=== PATIENT | female | born 1955 | race Caucasian/White ===

== ENCOUNTER 2024-08-14 09:06 | Observation (INO) | payer MEDICARE, SELFPAY ==
[2024-08-14] VITALS (8 sets, daily range): BP systolic 116–136; BP diastolic 67–79; PULSE 64–80; RESP 16–20; TEMP 36.6–37.1; O2SAT 98–99; BMI 30.3; BMI 30.4
--- NOTE | 2024-08-14 09:42 | US_ITS ---
EXAM: US Abdomen Limited, Right Upper Quadrant CLINICAL INDICATION: PAIN TECHNIQUE: Real-time ultrasound of the right upper quadrant with image documentation. COMPARISON: No relevant prior studies available. FINDINGS: LIVER: Liver measures 15.6 cm. Mild prominent intrahepatic ductal dilatation. GALLBLADDER: Distended gallbladder measuring up to 12.3 cm in length. Gallbladder sludge. Negative Chairez's sign was reported by the telecom assistant. No gallstones. COMMON BILE DUCT: Common bile duct is prominent measuring 0.72 cm in diameter. No common bile duct stone is seen. PANCREAS: Unremarkable as visualized. RIGHT KIDNEY: Unremarkable. No stones. No hydronephrosis. The right kidney measures 9.2 x 5.6 x 6.0 cm. US/Abdomen Limited IMPRESSION: Common bile duct is prominent measuring 0.72 cm in diameter. No common bile du ct stone is seen. Reading Location: [id number]
--- NOTE | 2024-08-14 09:44 | EDS_ITS ---
HPI HPI - GI History of Present Illness Chief Complaint: Abd Pain Narrative Narrative: 69-year-old female who denies significant past medical history presents with right upper quadrant abdominal pain that she has had for the last week. Of note, she states that she was seen by her primary care provider in [place] at the [facility] yesterday. She had laboratory work drawn as well as an ultrasound of the right upper quadrant. She states that her blood work may have shown slight inflammation, but the ultrasound initially looked okay, but she received a call from another provider in the practice, who told her that her gallbladder was infected and that she needed to come to the emergency department. She slightly nauseated but denies any vomiting currently. No fevers or chills, no jaundice. She does have pain in the right upper quadrant when she breathes or moves. [facility] Medical History Anxiety and depression Diverticulitis Home Medications ?Medication ?Instructions ?Recorded ?Last Taken ?Type Lactobacillus acidophilus 10 10,000 mmu cells PO DAILY 08/14/24 08/13/24 History billion cell capsule (Probacap) antiarthritic combination no.2 900 900 mg PO DAILY 08/14/24 History mg tablet (glucosamine-chondroitin) fluoxetine 20 mg capsule 20 mg PO DAILY 08/14/2407/29 History gabapentin 300 mg capsule 300 mg PO TID PRN NERVE PAIN 08/14/24 08/14/24 History hyoscyamine sulfate 0.125 mg tablet 0.125 mg PO Q8H MT N STOMACH CRAMPS 08/14/24 Unknown History magnesium oxide 420 mg tablet 420 mg PO DAILY 08/14/24 08/13/24 History omeprazole 20 mg capsule,delayed 20 mg PO DAILY 08/14/24 History release psyllium husk 0.4 gram capsule 0.4 g PO DAILY 08/14/24 08/13/24 History (Daily Fiber) turmeric 400 mg capsule 400 mg PO DAILY 08/14/24 History Allergy/AdvReac Type Severity Reaction Status Date / Time No Known Allergies Allergy Verified 08/14/24 09:07 Social History Smoking Status: Never smoker ROS ROS ED ROS Narrative Constitutional: No fever, no chills. Cardiovascular: No chest pain. No palpitations. No pedal edema. Respiratory: No cough, no shortness of breath. Abdominal: Right upper quadrant abdominal pain. Positive nausea. No vomiting. Positive loose stool. Genitourinary: No dysuria. No hematuria. Skin: No rash. No change in color. EXAM Physical Exam Narrative Exam Narrative: Afebrile. Vital signs noted. Nontoxic-appearing. Cardiovascular examination shows a regular rate and rhythm. Lungs are clear to auscultation bilaterally. Abdomen is soft, positive tenderness to palpation right upper quadrant with positive Chairez sign, also with positive bowel sounds. Skin without jaundice. Neurological examination nonfocal, nonlateralizing. Awake, alert, interactive and appropriate. Moves all extremities. Const Vital Signs: 08/14/24 09:07 08/14/24 10:09 08/14/24 11:00 Temperature 98 F 98.8 F 98.7 F Temperature Source Oral Oral Oral Pulse Rate 76 80 78 Respiratory Rate 16 16 18 Blood Pressure 136/79 H 126/79 H 129/67 H Blood Pressure Mean 98 94 87 Pulse Ox 98 98 98 Oxygen Delivery Method Room Air Room Air Room Air 08/14/24 11:10 Temperature 98.7 F Temperature Source Pulse Rate 78 Respiratory Rate 18 Blood Pressure 129/67 H Blood Pressure Mean 87 Pulse Ox 98 Oxygen Delivery Method MDM MDM MDM Narrative Medical decision making narrative: The differential diagnosis includes but not limited to cholelithiasis versus cholecystitis versus choledocholithiasis. Patient states that she was told yesterday evening that she had gallstones. I reviewed with her on her telephone her outpatient results and she did not have an elevated white count, her lipase was normal, but the ultrasound did show gallstones with borderline enlarged common bile duct and positive pericholecystic fluid. With the concern for acute cholecystitis, I will repeat her laboratory work here to see if she has a leukocytosis and I did order an additional ultrasound and she was started on Zosyn. I discussed the patient with the on-call surgeon Dr. Stallings. I reviewed her laboratory work and she has normal white count of 8.1 with hemoglobin 11.8, hematocrit 35.1, platelet count normal at 304. CMP is remarkable for glucose of 102, LFTs are grossly unremarkable, lipase normal at 21. Her ultrasound is still pending. I did start her on Zosyn based on her pericholecystic fluid from before. I discussed patient with Dr. Bernal who requested an EKG preoperatively which I will obtain and interpret. Upon repeat examination at approximately 11:10 AM, patient is still having right upper quadrant tenderness and pain. However, she does feel improved. Given her acute cholecystitis, I feel she can be admitted to the surgical service as requested by Dr. Stallings. EKG interpreted by myself independently demonstrates normal sinus rhythm at 62 bpm without ectopy or acute ST changes. No STEMI. QTc normal at 428 ms. Disposition is admit in stable condition. History & Record Review Discussion w/independent historian: Patient Additional record(s) reviewed:: Prior outpatient record (Via patient's personal MyChart on her telephone) Lab Data Attestation: I reviewed the patient's lab results. Labs: Laboratory Results - last 24 hr 08/14/24 09:45 WBC 8.1 RBC 3.68 L Hgb 11.8 L Hct 35.1 L MCV 95.4 MCH 32.1 H MCHC 33.6 RDW Std Deviation 45.8 H RDW Coeff of Trav 12.9 Plt Count 304 MPV 10.3 Immature Gran % (Auto) 0.400 Neut % (Auto) 70.3 H Lymph % (Auto) 11.7 L Faulk % (Auto) 14.4 H Eos % (Auto) 2.5 Baso % (Auto) 0.7 Absolute Neuts (auto) 5.7 Absolute Lymphs (auto) 0.95 Nucleated RBC % 0 Sodium 139 Potassium 4.3 Chloride 105 Carbon Dioxide 22.4 Anion Gap 12 BUN 19 Creatinine 0.88 Estim Creat Clear Calc 64.10 Est GFR (MDRD) Non-Af 71 BUN/Creatinine Ratio 21.0 H Glucose 102 H Calcium 9.5 Total Bilirubin 0.38 AST 20 ALT 14 Alkaline Phosphatase 91 Total Protein 7.3 Albumin 4.0 Globulin 3.3 Albumin/Globulin Ratio 1.2 Lipase 21 Radiography Diagnostic Testing: Clinical Impression(s) from Imaging Studies Abdomen Ultrasound 08/14/24 09:42 IMPRESSION: Common bile duct is prominent measuring 0.72 cm in diameter. No common bile duct stone is seen. Reading Location: [id number] Discharge Plan Dx/Rx/DC Orders Clinical Impression: Right upper quadrant abdominal pain, Acute cholecystitis, Common bile duct dilatation Disposition Disposition: Acute Care Hospital [facility]
[2024-08-14 09:59] LABS: Absolute Lymphocyte Count 0.95 X10^3/uL (0.83-4.51); Absolute Neutrophil Count 5.7 X10^3/uL (2.0-7.7); Basophil# 0.06 X10^3/uL; Basophil% 0.7 % (0-1); Eosinophils% 2.5 % (0-5); Hematocrit 35.1 % (37-47); Hemoglobin 11.8 g/dL (12.0-15.0); Lymphocyte # 0.95 X10^3/ul (0.83-4.51); Lymphocyte % 11.7 % (19-41); Mean Corp Hgb Conc 33.6 g/dL (32-36); Mean Corpuscular Hgb 32.1 pg (27.0-32.0); Mean Corpuscular Volume 95.4 fL (81-99); Mean Platelet Vol. 10.3 fl (6.2-12.0); Monocyte# 1.17 X10^3/uL; Monocyte% 14.4 % (0-10); NRBC Flagged by Analyzer 0 % (0-5); Neutrophil # 5.73 X10^3/uL (2.7-7.7); Neutrophil % 70.3 % (47-70); Platelet Count 304 K/mm3 (150-450); RBC Distribution Width CV 12.9 % (11.6-14.6); RBC Distribution Width SD 45.8 fl (35.1-43.9); Red Blood Count 3.68 M/mm3 (4.2-5.4); White Blood Count 8.1 K/mm3 (4.4-11.0)
[2024-08-14] MEDS: 0.9% Normal Saline (1000mL) 1,000 ML 125 ML IV ×2 (10:07→14:43)
[2024-08-14] MEDS: Piperacil/Tazobactam 3.375 GM in 0.9% Normal Saline (50mL MB+) 50 ML IV ×3 (10:07→22:33)
[2024-08-14] MEDS: Morphine 4 MG/ML Syringe IV (10:07)
[2024-08-14] MEDS: Ondansetron 4 MG/2 ML Vial IV (10:08)
[2024-08-14 10:22] LABS: ALB/GLOB Ratio 1.2 RATIO (0.9-2.4); AST(SGOT) 20 U/L (<=31); Alanine Aminotransfer ALT/SGPT 14 U/L (<=34); Alkaline Phosphatase 91 U/L (35-104); Anion Gap 12 (5-15); BUN 19 mg/dL (4-19); Calcium,Total 9.5 mg/dL (7.6-11.0); Carbon Dioxide 22.4 mmol/L (21.0-32.0); Chloride 105 mmol/L (98-108); Creatinine, Serum 0.88 mg/dL (0.70-1.20); EST Glomerular Filtration Rate 71 (>60); Globulin 3.3 g/dL (2.2-4.2); Glucose 102 mg/dL (70-99); Lipase 21 U/L (13-75); Potassium 4.3 mmol/L (3.3-5.1); Protein, Total 7.3 g/dL (5.9-8.4); Sodium Level 139 mmol/L (133-145); Total Bilirubin 0.38 mg/dL (0.00-1.30)
--- NOTE | 2024-08-14 11:06 | EKG12_ITS ---
Test Reason : ABD PAIN Blood Pressure : */* mmHG Vent. Rate : 62 BPM Atrial Rate : 62 BPM P-R Int : 122 ms QRS Dur : 74 ms QT Int : 422 ms P-R-T Axes : 63 11 20 degrees QTcB Int : 428 ms Normal sinus rhythm Normal ECG Confirmed by RAMIRO CHRISTY, JAMEL ([id number]), graphics editor VICTORIA GUTIERREZ ([id number]) on 08/16/2024 9:21:40 AM Referred By: Confirmed By: JAMEL RUBIO MD
--- NOTE | 2024-08-14 11:07 | PCM.HP.STD ---
HPI - General General Date of Admission: 08/14/24 Date of Service: 08/14/24 HPI Narrative LUZ BUENROSTRO, is a 69 F who presents to the ER due to abnormal ultrasound of the gallbladder done by her PCP on at [place]. Patient is currently in the process of moving to [place] from [place]. Patient was called and told to go to the ER this morning as she reported states she had pericholecystic fluid. Patient has had tenderness in the right upper quadrant over the last week. Patient states that did not get worse with eating but did not have chronic constant pain. Patient was able to eat pizza yesterday. Patient's repeat ultrasound in the ER report is pending does appear to have cholelithiasis as well as small amount of pericholecystic fluid?official report does not note the pericholecystic fluid but it is seen on ultrasound per my read. Patient white blood count 8.1 with a slight left shift. Zosyn 3.375 g IV every 8 hours started in the ER. [facility] Medical History Anxiety and depression Diverticulitis Home Medications ?Medication ?Instructions ?Recorded ?Last Taken ?Type Lactobacillus acidophilus 10 10,000 mmu cells PO DAILY 08/14/24 08/13/24 History billion cell capsule (Probacap) antiarthritic combination no.2 900 900 mg PO DAILY 08/14/24 08/14/24 History mg tablet (glucosamine-chondroitin) fluoxetine 20 mg capsule 20 mg PO DAILY 08/14/24 08/14/24 History gabapentin 300 mg capsule 300 mg PO TID PRN NERVE PAIN 08/14/24 08/14/24 History hyoscyamine sulfate 0.125 mg tablet 0.125 mg PO Q8H PRN STOMACH CRAMPS 08/14/24 Unknown History magnesium oxide 420 mg tablet 420 mg PO DAILY 08/14/24 08/13/24 History omeprazole 20 mg capsule,delayed 20 mg PO DAILY 08/14/24 08/14/24 History release psyllium husk 0.4 gram capsule 0.4 g PO DAILY 08/14/24 08/13/24 History (Daily Fiber) turmeric 400 mg capsule 400 mg PO DAILY 08/14/24 08/14/24 History Allergy/AdvReac Type Severity Reaction Status Date / Time No Known Allergies Allergy Verified 08/14/24 12:08 Social History Smoking Status: Never smoker Vital Signs Vital Signs Vital Signs: 08/14/24 09:07 08/14/24 10:09 08/14/24 11:00 Temperature 98 F 98.8 F 98.7 F Temperature Source Oral Oral Oral Pulse Rate 76 80 78 Respiratory Rate 16 16 18 Blood Pressure 136/79 H 126/79 H 129/67 H Blood Pressure Mean 98 94 87 Pulse Ox 98 98 98 Oxygen Delivery Method Room Air Room Air Room Air Weight Weight: 182 lb 6.4 oz Body Mass Index (BMI) 30.3 Physical Exam Const alert, oriented x3 and no apparent distress HEENT normocephalic and head/scalp atraumatic Resp normal respiratory effort Cardio regular rate GI soft to palpation; Negative for non-distended Palpation: tender epigastric and RUQ; Negative for guarding Extremity no clubbing, cyanosis or edema Neuro CN's II-XII intact bilaterally Psych mental status grossly normal Results Lab / Micro Data 08/14/24 09:45 08/14/24 09:45 Labs: Laboratory Results - last 24 hr 08/14/24 09:45: WBC 8.1, RBC 3.68 L, Hgb 11.8 L, Hct 35.1 L, MCV 95.4, MCH 32.1 H, MCHC 33.6, RDW Std Deviation 45.8 H, RDW Coeff of Trav 12.9, Plt Count 304, MPV 10.3, Immature Gran % (Auto) 0.400, Neut % (Auto) 70.3 H, Lymph % (Auto) 11.7 L, Jerome % (Auto) 14.4 H, Eos % (Auto) 2.5, Baso % (Auto) 0.7, Absolute Neuts (auto) 5.7, Absolute Lymphs (auto) 0.95, Nucleated RBC % 0, Sodium 139, Potassium 4.3, Chloride 105, Carbon Dioxide 22.4, Anion Gap 12, BUN 19, Creatinine 0.88, Estim Creat Clear Calc 64.10, Est GFR (MDRD) Non-Af 71, BUN/Creatinine Ratio 21.0 H, Glucose 102 H, Calcium 9.5, Total Bilirubin 0.38, AST 20, ALT 14, Alkaline Phosphatase 91, Total Protein 7.3, Albumin 4.0, Globulin 3.3, Albumin/Globulin Ratio 1.2, Lipase 21 Assessment & Plan Assessment/Plan (1) Acute cholecystitis: PLAN: Plan Plan to admit clears until midnight then n.p.o. and IV fluids Zosyn IV Pain control Reviewed the anatomy with the patient and discussed the procedure: laparoscopic cholecystectomy with possible cholangiograms, possible open. Review risks including but not limited to bleeding, infection, hernia, bile leak, retained gallstones requiring another procedure ERCP- Endoscopic Retrograde Cholangiopancreatography, injury to another organ (bile ducts, common bile duct, small bowel, etc.) and conversion to an open procedure. All questions were answered. Saundra Stallings M.D. Pager: [phone] [facility] [address] [place] [address], [address] [place] [address] Office: [phone]
[2024-08-14] MEDS: oxyCODONE 5 MG Tablet PO (20:15)
[2024-08-15] VITALS (16 sets, daily range): BP systolic 108–180; BP diastolic 68–85; PULSE 77–94; RESP 14–18; TEMP 36.4–37.3; O2SAT 91–99; BMI 30.5; BMI 30.6
[2024-08-15] MEDS: Piperacil/Tazobactam 3.375 GM in 0.9% Normal Saline (50mL MB+) 50 ML IV ×3 (05:17→22:29)
[2024-08-15] MEDS: Morphine 4 MG/ML Syringe IV (05:22)
[2024-08-15] MEDS: 0.9% Normal Saline (1000mL) 1,000 ML 125 ML IV (05:23)
[2024-08-15 05:26] LABS: Absolute Lymphocyte Count 0.92 X10^3/uL (0.83-4.51); Absolute Neutrophil Count 3.3 X10^3/uL (2.0-7.7); Basophil# 0.06 X10^3/uL; Basophil% 1.1 % (0-1); Eosinophil# 0.28 X10^3/uL; Eosinophils% 5.3 % (0-5); Hematocrit 32.3 % (37-47); Hemoglobin 10.7 g/dL (12.0-15.0); Lymphocyte # 0.92 X10^3/ul (0.83-4.51); Lymphocyte % 17.3 % (19-41); Mean Corp Hgb Conc 33.1 g/dL (32-36); Mean Corpuscular Hgb 32.6 pg (27.0-32.0); Mean Corpuscular Volume 98.5 fL (81-99); Mean Platelet Vol. 9.7 fl (6.2-12.0); NRBC Flagged by Analyzer 0 % (0-5); Neutrophil # 3.25 X10^3/uL (2.7-7.7); Neutrophil % 61.1 % (47-70); Platelet Count 255 K/mm3 (150-450); RBC Distribution Width CV 12.8 % (11.6-14.6); RBC Distribution Width SD 46.5 fl (35.1-43.9); Red Blood Count 3.28 M/mm3 (4.2-5.4); White Blood Count 5.3 K/mm3 (4.4-11.0)
[2024-08-15] MEDS: Ondansetron 4 MG/2 ML Vial IV (05:39)
[2024-08-15 07:07] LABS: AST(SGOT) 23 U/L (<=31); Alanine Aminotransfer ALT/SGPT 12 U/L (<=34); Albumin, Serum 3.4 g/dL (3.4-4.8); Alkaline Phosphatase 89 U/L (35-104); Anion Gap 8 (5-15); BUN 10 mg/dL (4-19); BUN/Creat Ratio 11.1 RATIO (10-20); Bilirubin, Direct 0.26 mg/dL (0.00-0.30); Calcium,Total 8.9 mg/dL (7.6-11.0); Carbon Dioxide 25.3 mmol/L (21.0-32.0); Chloride 108 mmol/L (98-108); Creatinine, Serum 0.87 mg/dL (0.70-1.20); EST Glomerular Filtration Rate 72 (>60); Estimated Creatinine Clearance 65.05 ml/min (50-250); Globulin 2.9 g/dL (2.2-4.2); Glucose 100 mg/dL (70-99); Potassium 4.7 mmol/L (3.3-5.1); Protein, Total 6.3 g/dL (5.9-8.4); Sodium Level 141 mmol/L (133-145); Total Bilirubin 0.52 mg/dL (0.00-1.30)
--- NOTE | 2024-08-15 07:54 | PRE.ANES_ITS ---
ASA Classification* ASA Classification ASA Classification: 2 and E Assessment & Plan Anesthesia* Anesthesia Assessment Anesthesia Assessment: Discussed sedation and/or anesthesia options, risks, benefits, and alternatives with patient/parents/legal guardian/POA. Questions invited. The patient/parents/legal guardian/POA seems to understand and agrees to proceed with anesthesia plan. Reviewed the physical assessment, medical history, allergy history and patient home medications list prior to surgery/procedure/anesthetic and documented any changes. Performed airway and anesthesia risk assessments. Anesthesia Type Anesthesia Type: General Anesthesia Focused Assessment* Temperature: 99.1 F Pulse Rate: 78 Blood Pressure: 123/68 Respiratory Rate: 18 Pulse Ox: 97 Airway Assessment Mouth opens: >3 cm Mallampati Score: II Focused Labs Anesthesia Preop lab: CBC WBC 5.3 K/mm3 (4.4-11.0) 08/15/24 05:08 08/15/24 RBC 3.28 M/mm3 (4.2-5.4) L 08/15/24 05:08 08/15/24 Hgb 10.7 g/dL (12.0-15.0) L 08/15/24 05:08 5 Hct 32.3 % (37-47) L 08/15/24 05:08 08/15/24 Plt Count 255 K/mm3 (150-450) 08/15/24 05:08 08/15/24 CHEMISTRY Potassium 4.7 mmol/L (3.3-5.1) 08/15/24 05:08 08/15/24 Sodium 141 mmol/L (133-145) 08/15/24 05:08 08/15/24 BUN 10 mg/dL (4-19) 08/15/24 05:08 08/15/24 Creatinine 0.87 mg/dL (0.70-1.20) 08/15/24 05:08 08/15/24 Glucose 100 mg/dL (70-99) H 08/15/24 05:08 08/15/24 COAG Pre-Assessment Diagnosis/Proposed Procedure Planned Operative Procedure(s): lap issac Anesthesia History Anesthesia History - performance improvement consultant: Anesthesia History - performance improvement consultant Hx Hospitalization Any Problems With Anesthesia No 08/15/24 05:25 Cholinesterase deficiency No 08/15/24 05:25 You/Your Family Experience No 08/15/24 05:25 fever (hyperthermia) with Relationship Recent Exposure to Contagious No 08/15/24 05:25 Disease Does patient have nerve No 08/15/24 05:25 stimulator Patient instructed to have device shut off --Does patient have Pacemaker No 08/15/24 05:27 or ICD? When Was Last Pacemaker Check QUESTION #4 FULL TEXT: You/Your Family Experience fever (hyperthermia) with Anesthesia Last Oral Intake Last Oral intake: Last Oral Intake NPO since 00:00 08/15/24 05:27 Meds taken in AM with sips of water? Meds patient instructed to take am of surgery PONV PONV - performance improvement consultant: PONV - performance improvement consultant Female HX of Motion Sickness HX of N/V After Surgery Non-Smoker Duration of Surgery greater than 60 minutes Number of Risk Factors PONV Score Height & Weight Height & Weight: Anesthesia: Height & Weight Height 5 ft 5 in 08/15/24 05:27 Weight: 83.3 kg 08/15/24 05:27 Body Mass Index (BMI) 30.5 08/15/24 05:27 Respiratory Assessment Respiratory Assessment - performance improvement consultant: Respiratory Tract Infection Hx - performance improvement consultant Hx Respiratory Tract Infection No 08/15/24 05:25 STOP Sleep Apnea STOP Sleep Apnea - performance improvement consultant: STOP Sleep Apnea - performance improvement consultant Hx Hypertension No 08/14/24 11:53 Hx Sleep Apnea No 08/14/24 11:53 CPAP BIPAP Do you snore loudly (louder No 08/14/24 11:53 than talking or can be heard Do you often feel tired/ No 08/14/24 11:53 fatigued/ sleepy during daytime? Has anyone observed you stop No 08/14/24 11:53 breathing during sleep? STOP Results Negative 08/14/24 11:53 QUESTION #5 FULL TEXT : Do you snore loudly (louder than talking or can be heard through closed doors)? Tobacco Use History Tobacco Use History - performance improvement consultant: Tobacco Use History - performance improvement consultant Tobacco Use Smoking Status Never smoker 08/14/24 11:53 Hx Tobacco Use No 08/14/24 11:53 Years Smoking Packs Smoked per Day Smoking Cessation Date was within the last 15 years Hx Smoking Cessation Date Hx Smoking Cessation Counseling Hematologic Medial History Hematologic Hx - performance improvement consultant: Hematologic Medical Hx - marketing ambassador Hx of Blood Transfusion No 08/14/24 11:53 Hx of Transfusion in last 3 No 08/14/24 11:53 Months Date of Last Transfusion (if within last 3 months) Ever experience any problems No 08/14/24 11:53 with transfusion(s)? Specify any problems Hx of Preganancy in last 3 No 08/14/24 11:53 Months Nurse Filling Out Transfusion TCLEVIDEN 08/14/24 11:53 & Questions: Date: 08/14/24 08/14/24 11:53 Time: 12:17 08/14/24 11:53 Patient unable to answer at this time (ie. confused, unrespo /Reproduction History /Reproductive History - performance improvement consultant: /Reproductive Hx- performance improvement consultant Hx Now No 08/15/24 05:25 Gestational Age (in weeks): EDC: Hx Hx Para Hx Section SAB Active Medications Active Medications: Current Medications Generic Name Dose Route Start Last Admin Trade Name Freq PRN Reason Stop Dose Admin Acetaminophen 650 mg 08/14/24 11:52 Acetaminophen 325 Mg Tablet PO Q6H PRN PRN Pain Score 1-10 Fluoxetine HCl 20 mg 08/15/24 10:00 Fluoxetine 20 Mg Capsule PO DAILY FANTA Piperacillin Sod/Tazobactam 50 mls @ 12.5 mls/hr 08/14/24 14:00 08/15/24 05:17 Sod 3.375 gm/ Sodium Chloride IV 12.5 mls/hr Q8 FANTA Administration Sodium Chloride 1,000 mls @ 125 mls/hr 08/14/24 11:52 08/15/24 05:23 IV 125 mls/hr .Q8H FANTA Administration Morphine Sulfate 2 - 4 mg 08/14/24 11:52 Morphine 2 Mg/Ml Syringe IV Q2H PRN PRN Pain Score 1-10 Morphine Sulfate 2 - 4 mg 08/14/24 11:58 08/15/24 05:22 Morphine 4 Mg/Ml Syringe IV 4 mg Q2H PRN PRN Administration Pain Score 1-10 Ondansetron HCl 4 mg 08/14/24 11:52 08/15/24 05:39 Ondansetron 4 Mg/2 Ml Vial IV 4 mg Q8H PRN PRN Administration NAUSEA Oxycodone HCl 5 - 10 mg 08/14/24 11:52 08/14/24 20:15 Oxycodone 5 Mg Tablet PO 10 mg Q4H PRN PRN Administration Pain Score 1-10 Pantoprazole Sodium 20 mg 08/15/24 10:00 Pantoprazole Sodium 20 Mg Tablet PO DAILY FANTA PFSH Medical History Anxiety and depression Diverticulitis Home Medications ?Medication ?Instructions ?Recorded ?Last Taken ?Type Lactobacillus acidophilus 10 10,000 mmu cells PO DAILY 08/14/24 08/13/24 History billion cell capsule (Probacap) antiarthritic combination no.2 900 900 mg PO DAILY 08/14/24 History mg tablet (glucosamine-chondroitin) fluoxetine 20 mg capsule 20 mg PO DAILY 08/14/2407/29 History gabapentin 300 mg capsule 300 mg PO TID PRN NERVE PAIN 08/14/24 08/14/24 History hyoscyamine sulfate 0.125 mg tablet 0.125 mg PO Q8H CO N STOMACH CRAMPS 08/14/24 Unknown History magnesium oxide 420 mg tablet 420 mg PO DAILY 08/14/24 08/13/24 History omeprazole 20 mg capsule,delayed 20 mg PO DAILY 08/14/24 History release psyllium husk 0.4 gram capsule 0.4 g PO DAILY 08/14/24 08/13/24 History (Daily Fiber) turmeric 400 mg capsule 400 mg PO DAILY 08/14/24 History Allergy/AdvReac Type Severity Reaction Status Date / Time No Known Allergies Allergy Verified 08/14/24 12:08 Social History Smoking Status: Never smoker Review of Systems (Anesthesia) ROS Narrative System reviewed and no additional complaints, except as documented. Physical Exam Narrative ekg nsr
--- NOTE | 2024-08-15 08:20 | GALL_PTH ---
PATIENT: LZU BUENROSTRO LOC: [facility] U#:[id number] AGE/SX: 69/F ROOM: [id number] RE08/14/[address]: Dr. Saundra Stallings MD : [id number] BED: 1 DIS: 08/16/2024 SPEC #: [id number] RECD: 08/16/24 07:33 STATUS: DEYANIRA KRISTINA #: [id number] CHARISSE: 08/15/24 08:[address]: Saundra Stallings DEPT: SURGICAL PATHOLOGY RECD BY: Joy Garcia ENTERED: 08/16/24 08:17 SP TYPE: KHADIJAH MAGAÑA DR: No Primary Care Phys Tissues: A - Gallbladder, NOS Procedures: Surgery Specimen Level III HEADER OPERATION: Laparoscopic, cholecystectomy with cholangiograms PRE-OP DIAGNOSIS: Acute cholecystitis TISSUE SUBMITTED: A- Gallbladder MICROSCOPIC DIAGNOSIS A. Gallbladder, cholecystectomy: * Acute and chronic cholecystitis with cholelithiasis MICROSCOPIC DESCRIPTION Slides are reviewed. GROSS DESCRIPTION A. Received in formalin in a container labeled with the patient's name, date of , and gallbladder is a 10.2 x 5.5 x 4.0 cm previously disrupted cholecystectomy specimen. A possible cystic duct margin is identified, which appears flush with the serosa and exhibits a diameter of 0.2 cm (inked black). The serosa is escobar-pink, pale, with dense adhesions. The specimen is opened to reveal red-brown, diffusely denuded, and roughened mucosa with scattered hemorrhage. Multiple firm, black, and multifaceted stones are identified free-floating in the container measuring approximately 8 x 4 x 0.5 cm in aggregate. No mass-like lesions are grossly recognized. There is an average wall thickness of 0.3 cm. Video Game Technician sections are submitted in A1 (including possible cystic duct margin, en face with full-thickness sections). [facility] 08-16-2024 CPT:00162
[2024-08-15] MEDS: Bupivacaine Mpf 0.5% 30 ML VIAL (09:47)
--- NOTE | 2024-08-15 10:03 | OP.PCM_ITS ---
Operative Report (Standard) Operative Information Date of Procedure: 08/15/24 Pre-Operative Diagnosis: Acute cholecystitis Post-Operative Diagnosis: Same Surgery/Procedure Performed: Laparoscopic cholecystectomy residential sales consultant: Yes Physical Therapy Assistant Instructor: Debra Saunders Tasks completed by dental front office assistant: Opening & closing and Retracting Type of Anesthesia: General/Supplemental RN Documented Start/Stop Times: Operation Date: 08/15/24 08:20 Case Time Anesthesia Start 08/15/24 08:20 Into Room 08/15/24 08:20 Procedure Start 08/15/24 08:40 Procedure End 08/15/24 10:00 Anesthesia End 08/15/24 10:02 Out of Room 08/15/24 10:02 Into Recovery 08/15/24 10:15 Out of Recovery 08/15/24 11:57 Procedure Start Time: 08:40 Procedure Stop Time: 10:00 Select all DRAINS/GRAFTS/IMPLANTS that apply: Drains Drain details: 15 [place] round EDGAR Special Medications: Zosyn 3.375 g IV every 8 hours for acute cholecystitis Estimated Blood Loss: 20 cc Specimen collected: Yes Description of specimen(s) removed: Gallbladder Description of surgery: Indications: this is a 69 year-old female who developed abdominal pain/nausea/vomiting and on workup was found to have acute cholecystitis, cholelithiasis, with a normal common bile duct. Laparoscopic cholecystectomy was elected. Description procedure: The patient was placed on operating table in supine position. A timeout was completed verifying correct patient, procedure, site, position and special equipment prior to beginning procedure. General Anesthesia was induced. The abdomen was prepped and draped in usual sterile fashion. An incision was made in the natural skin line above the umbilicus. The fascia was elevated and incised. The peritoneum was elevated and incised. Entry into the peritoneum was confirmed visually and no bowel was noted in the vicinity of the incision. Desouza trocar was placed. The abdomen was insufflated with carbon dioxide to a pressure of 12-15 mmHg. Patient tolerated insufflation well. The laparoscope was then inserted and abdomen inspected. No injuries from initial trocar placement were noted. Additional trochars were then inserted in the following locations 5 mm trocar in the epigastrium and 2 more 5 mm trochars along the right costal margin. The abdomen was inspected gallbladder was noted to be inflamed/distended and tense. The table is placed in reverse Trendelenburg position with the right side up. The adhesions between the gallbladder and omentum were taken down with traction. The dome of the gallbladder was grasped with atraumatic grasper passed through the lateral port and retracted over the dome of the liver. Infundibulum was then grasped with atraumatic grasper through the midclavicular port and re tracted to the right lower quadrant. There is noted to be thick adhesions with a thick rind at the neck of the gallbladder. Unable to safely dissect out the cystic artery and cystic duct. Harmonic was used to divide the gallbladder and area of safety. The gallbladder then dissected from its peritoneal attachments by electrocautery/harmonic/Erbe. Hemovacs also placed for hemostasis. The gallb ladder and contained stones were removed using the endoscopic retrieval bag through the umbilical port. The gallbladder is passed off table as specimen. Specimen was examined and the distal cystic duct was seen with the specimen but was occluded even from the inside of the gallbladder. The gallbladder fossa was irrigated with saline and hemostasis obtained. There is no evidence of bleeding from the gallbladder fossa or leakage of bile from the cystic duct stump. 15 Wol[place] round EDGAR was left in the gallbladder fossa exiting the lateral right trocar site and secured with 3-0 nylon suture. Secondary trochars removed under direct vision. No bleeding was noted the trocar sites. The laparoscope was withdrawn and umbilical trocar removed. The abdomen was allowed to collapse. The fascia of the 12 mm trocar was closed with a [id number] 0 Vicryl suture. The skin was closed with sutures of 4-0 Monocryl and Steri-Strips. The patient was extubated. The patient tolerated procedure well and was taken to the postanesthesia care unit in stable condition. Surgical Findings: See operative report Complications Complications: No
--- NOTE | 2024-08-15 10:53 | PCM.POST.ANE ---
Anesthesia: Postop Eval I Current Vital Signs Temperature: 98.2 F Pulse Rate: 94 Blood Pressure: 148/76 Respiratory Rate: 16 Pulse Ox: 99 Assessment Airway patent: Yes Spontaneous unlabored respirations: Yes nausea: No Vomiting: No Anesthesia Complication: No Fluid Hydration Crystalloid volume administer (ml): 1,000 Total IV fluid infused: 1,000 Progress Note Anesthesia document: Postop Eval 1 completed: Yes
--- NOTE | 2024-08-15 10:54 | PCM.POSTANE2 ---
Anesthesia Postop Eval I Sum Postop Eval Completion status Anesthesia document: Postop Eval 1 completed: Yes Anesthesia Postop Eval I Summary Anesthesia Postop Eval I Summary: Anesthesia Postop Eval I: Assessment Summary Airway patent Yes 08/15/24 10:53 Spontaneous unlabored Yes 08/15/24 10:53 respirations Mental status nausea No 08/15/24 10:53 Vomiting No 08/15/24 10:53 Anesthesia Postop Eval I: Fluid Summary Crystalloid volume administer 1,000 08/15/24 10:53 (ml) Colloids volume administered ( ml) Blood Product volume administered (ml) Total IV fluid infused 1,000 08/15/24 10:53 Anesthesia Postop Eval I: Summary Notes Anesthesia Complication No 08/15/24 10:53 Anesthesia Complication Comment: Post-operative progress note Anesthesia: Postop Eval II Evaluation Mental status: Awake Pain Level: 0 nausea: No Vomiting: No
[2024-08-15] MEDS: oxyCODONE 5 MG Tablet PO ×3 (13:51→22:29)
[2024-08-16 00:05] VITALS: BMI 30.6
[2024-08-16] MEDS: Acetaminophen 325 MG Tablet 650 MG PO (01:22)
[2024-08-16 04:00] VITALS: BP 134/83; PULSE 81; RESP 18; TEMP 36.7; O2SAT 95
[2024-08-16 04:05] VITALS: BMI 30.6
[2024-08-16] MEDS: oxyCODONE 5 MG Tablet PO (05:52)
[2024-08-16] MEDS: Piperacil/Tazobactam 3.375 GM in 0.9% Normal Saline (50mL MB+) 50 ML IV (05:52)
[2024-08-16 05:59] LABS: Absolute Lymphocyte Count 0.75 X10^3/uL (0.83-4.51); Absolute Neutrophil Count 7.3 X10^3/uL (2.0-7.7); Basophil# 0.02 X10^3/uL; Basophil% 0.2 % (0-1); Eosinophil# 0.01 X10^3/uL; Eosinophils% 0.1 % (0-5); Hematocrit 33.1 % (37-47); Hemoglobin 10.9 g/dL (12.0-15.0); Lymphocyte # 0.75 X10^3/ul (0.83-4.51); Lymphocyte % 8.2 % (19-41); Mean Corp Hgb Conc 32.9 g/dL (32-36); Mean Corpuscular Volume 97.1 fL (81-99); Monocyte# 0.98 X10^3/uL; Monocyte% 10.7 % (0-10); NRBC Flagged by Analyzer 0 % (0-5); Neutrophil # 7.34 X10^3/uL (2.7-7.7); Neutrophil % 80.4 % (47-70); Platelet Count 302 K/mm3 (150-450); RBC Distribution Width CV 12.5 % (11.6-14.6); RBC Distribution Width SD 44.3 fl (35.1-43.9); Red Blood Count 3.41 M/mm3 (4.2-5.4); White Blood Count 9.1 K/mm3 (4.4-11.0)
[2024-08-16 06:23] LABS: AST(SGOT) 41 U/L (<=31); Alanine Aminotransfer ALT/SGPT 31 U/L (<=34); Albumin, Serum 3.4 g/dL (3.4-4.8); Alkaline Phosphatase 98 U/L (35-104); Anion Gap 10 (5-15); BUN 8 mg/dL (4-19); BUN/Creat Ratio 9.9 RATIO (10-20); Bilirubin, Direct 0.18 mg/dL (0.00-0.30); Calcium,Total 9.2 mg/dL (7.6-11.0); Carbon Dioxide 23.7 mmol/L (21.0-32.0); Chloride 102 mmol/L (98-108); Creatinine, Serum 0.77 mg/dL (0.70-1.20); EST Glomerular Filtration Rate 84 (>60); Estimated Creatinine Clearance 70.74 ml/min (50-250); Globulin 3.3 g/dL (2.2-4.2); Glucose 109 mg/dL (70-99); Potassium 4.3 mmol/L (3.3-5.1); Protein, Total 6.7 g/dL (5.9-8.4); Sodium Level 135 mmol/L (133-145); Total Bilirubin 0.37 mg/dL (0.00-1.30)
[2024-08-16 08:05] VITALS: BMI 30.6
[2024-08-16] MEDS: Pantoprazole Sodium 40 MG Tablet PO (08:36)
[2024-08-16] MEDS: FLUoxetine 20 MG Capsule PO (08:36)
[2024-08-16 09:00] VITALS: BP 132/70; PULSE 74; RESP 18; TEMP 37; O2SAT 95
--- NOTE | 2024-08-16 09:18 | PCM.PN.SRG ---
Subjective Subjective Patient evaluated resting comfortably in bed. She notes incisional pain/discomfort with movement. She denies any nausea, vomiting, fever over night. She notes tolerating a diet well. She voices readiness to go home. Objective Data Objective Data Vital Signs: Vital Signs Temp Pulse Resp BP Pulse Ox O2 Del Method O2 Flow Rate 98.0 F 81 18 134/83 H 95 Room Air 2 08/16/24 04:00 08/16/24 04:00 08/16/24 04:00 08/16/24 04:00 08/16/24 04:00 08/16/24 04:00 08/15/24 13:00 Oxygen Flow Rate (L/min) 2 Oxygen Delivery Method Room Air Weight: 183 lb 10.321 oz Body Mass Index (BMI) 30.5 Intake & Output: Intake and Output for Last 24 Hours 08/14/24 08/15/24 08/16/24 23:59 23:59 23:59 Intake Total 1808.33 / 1808.33 1189.58 / 1439.58 600 / 600 Output Total 120 / 120 30 / 30 Balance 1808.33 / 1808.33 1069.58 / 1319.58 570 / 570 Lab / Micro Data 08/16/24 05:27 08/16/24 05:27 Labs: Laboratory Results - last 24 hr 08/16/24 05:27: WBC 9.1, RBC 3.41 L, Hgb 10.9 L, Hct 33.1 L, MCV 97.1, MCH 32.0, MCHC 32.9, RDW Std Deviation 44.3 H, RDW Coeff of Trav 12.5, Plt Count 302, MPV 10.0, Immature Gran % (Auto) 0.400, Neut % (Auto) 80.4 H, Lymph % (Auto) 8.2 L, [place] % (Auto) 10.7 H, Eos % (Auto) 0.1, Baso % (Auto) 0.2, Absolute Neuts (auto) 7.3, Absolute Lymphs (auto) 0.75 L, Nucleated RBC % 0, Sodium 135, Potassium 4.3, Chloride 102, Carbon Dioxide 23.7, Anion Gap 10, BUN 8, Creatinine 0.77, Estim Creat Clear Calc 70.74, Est GFR (MDRD) Non-Af 84, BUN/Creatinine Ratio 9.9 L, Glucose 109 H, Calcium 9.2, Total Bilirubin 0.37, Direct Bilirubin 0.18, AST 41 H, ALT 31, Alkaline Phosphatase 98, Total Protein 6.7, Albumin 3.4, Globulin 3.3 Physical Exam GI GI Narrative: Abdomen- soft, generalized tenderness. Incisions c/d/i. No erythema or infection noted. EDGAR intact with dark bloody fluid within the EDGAR bulb. Assessment & Plan Assessment/Plan (1) Acute cholecystitis: PLAN: I am following this patient in conjunction with Dr. Stallings. She will independently evaluate this patient. Labs reviewed. Plan to discharge today with EDGAR drain in place Plan to continue oral antibiotics at discharge for 4 additional days Follow-up in 2 days to have EDGAR drain removed Ready for discharge later today Charges/Coding Visit Charges Inpatient E&M: 14641 Subs Hosp L1 (post-op)
--- NOTE | 2024-08-16 10:11 | CASEMGMT ---
Met with patient to complete CURRAN form. CURRAN form explained to patient who voiced understanding and signed form. Original form placed in pt?s chart and copy provided to patient. Laura Barber, Discharge Planning Asst
--- NOTE | 2024-08-16 10:52 | PCM.DC.SUM ---
Providers Date of Admission: 08/14/24 Primary Care Physician: No Primary Care Phys Reason For Visit: ACUTE CHOLECYSTITIS Diagnosis Discharge Diagnosis (1) Acute cholecystitis: Status: Acute Code(s): K81.0 - Acute cholecystitis Plan: I am following this patient in conjunction with Dr. Stallings. She will independently evaluate this patient. Labs reviewed. Plan to discharge today with EDGAR drain in place Plan to continue oral antibiotics at discharge for 4 additional days Follow-up in 2 days to have EDGAR drain removed Ready for discharge later today Medications at Discharge Home Medications Lactobacillus acidophilus 10 billion cell capsule (Probacap) 10,000 mmu cells PO DAILY 08/14/24 antiarthritic combination no.2 900 mg tablet (glucosamine-chondroitin) 900 mg PO DAILY 08/14/24 fluoxetine 20 mg capsule 20 mg PO DAILY 08/14/24 gabapentin 300 mg capsule 300 mg PO TID PRN NERVE PAIN 08/14/24 hyoscyamine sulfate 0.125 mg tablet 0.125 mg PO Q8H PRN STOMACH CRAMPS 08/14/24 magnesium oxide 420 mg tablet 420 mg PO DAILY 08/14/24 omeprazole 20 mg capsule,delayed release 20 mg PO DAILY 08/14/24 psyllium husk 0.4 gram capsule (Daily Fiber) 0.4 g PO DAILY 08/14/24 turmeric 400 mg capsule 400 mg PO DAILY 08/14/24 acetaminophen 325 mg tablet 650 mg (2 x 325 mg) PO Q6H PRN PRN Pain Score 1-10 #0 tabs 08/16/24 amoxicillin 875 mg-potassium clavulanate 125 mg tablet 1 tab PO BIDCM 4 days #8 tabs 08/16/24 oxycodone 5 mg tablet 5 mg PO Q6H PRN pain 2 days #6 tabs 08/16/24 Hospital Course Operations cholecystecomy Summary of Care Provided Minutes Spent on Discharge: 25 Hospital Course: Patient is a 69 y/o F who presented following an abnormal RUQ u/s. Patient was having right upper quadrant abdominal pain and obtained a RUQ u/s at an outside facility who contacted the patient and told her that her u/s was abnormal and she needed to proceed to the ED. Abdominal u/s was obtained again in the ED which demonstrated a large distended gallbladder with sludge and dilated common bile duct. Dr. Stallings performed a laparoscopic cholecystectomy with EDGAR drain placement on 08/15/24. Patient tolerated the procedure well. Patient had an uneventful hospitalization. Upon discharge, She was tolerating a diet well. She denies nausea, vomiting, fever. She was discharged to home with EDGAR drain. Patient will continue oral antibiotics for 4 additional days. She will return to our office on Friday to have her drain removed. Weight / BMI Weight Weight: 183 lb 10.321 oz Body Mass Index (BMI) 30.5 ABG / Lab / Microbiology Data 08/16/24 05:27 08/16/24 05:27 Laboratory: Laboratory Results - last 24 hr 08/16/24 05:27: WBC 9.1, RBC 3.41 L, Hgb 10.9 L, Hct 33.1 L, MCV 97.1, MCH 32.0, MCHC 32.9, RDW Std Deviation 44.3 H, RDW Coeff of Trav 12.5, Plt Count 302, MPV 10.0, Immature Gran % (Auto) 0.400, Neut % (Auto) 80.4 H, Lymph % (Auto) 8.2 L, [place] % (Auto) 10.7 H, Eos % (Auto) 0.1, Baso % (Auto) 0.2, Absolute Neuts (auto) 7.3, Absolute Lymphs (auto) 0.75 L, Nucleated RBC % 0, Sodium 135, Potassium 4.3, Chloride 102, Carbon Dioxide 23.7, Anion Gap 10, BUN 8, Creatinine 0.77, Estim Creat Clear Calc 70.74, Est GFR (MDRD) Non-Af 84, BUN/Creatinine Ratio 9.9 L, Glucose 109 H, Calcium 9.2, Total Bilirubin 0.37, Direct Bilirubin 0.18, AST 41 H, ALT 31, Alkaline Phosphatase 98, Total Protein 6.7, Albumin 3.4, Globulin 3.3 D/C Instructions Discharge Diet: Light diet - advance as tolerated Discharge Activity: May Not Drive (while taking narcotic pain medication) and May Not Shower (while EDGAR drain is intact) Lifting Restrictions: No lifting greater than 20 pounds for 2 weeks Call your doctor if your incision/area has: Continuous Slow Oozing, Sudden Increased Bleeding, Increased Pain/ Swelling, Increased Redness, Foul Smelling Discharge and Swelling at the incision site Call your doctor if you observe: Fever of 101 or Higher Suture Line Care: Avoid Pulling/Pushing and Avoid Pinching/Bending Remove Dressing in: 2 days DC O2, CPAP, BIPAP Needs Home O2 Discharge instructions: No DC home with Oxygen: No Please Follow Up With: Tanya Campoverde PA-C When: Follow-up scheduled for 08/18 at 2:15 pm. Please contact our office at [phone], option #2 with any questions or concerns Meaningful Use Info Meaningful Use Meaningful Use Diagnoses (Choose all that apply): None applicable Ischemic Stroke Statin Dosing Therapy Reference: STATIN DOSE THERAPY REFERENCE: * Patients > 75 years receive moderate or high dose statin therapy. * Patients 75 years or YOUNGER should receive HIGH intensity statin dose unless contraindicated. You will be required to document reason for non-treatment if statin daily dose does not meet guidelines. HIGH DOSE STATIN THERAPY DAILY Atorvastatin > than or = to 40 mg Rosuvastatin > than or = to 20 mg Amlodipine + Atorvastatin > than or = to 2.5/40 mg Ezetimibe + Simvastatin 10/80 mg Simvastatin 80mg Discharge Plan Admission Admit Date/Time: 08/14/24 11:16 Primary Reason for Your Visit: Acute cholecystitis Attending Provider: Saundra Stallings Primary Care Provider: Care Physician,No Primary Instructions Additional Instructions / Restrictions: Cholecystectomy Diet ? Start light with soups and soft bland foods. You may advance diet as tolerated. Activity ? You may drive in 3-5 days but not while taking narcotic pain medication. ? I encourage walking. You may go up steps, one at a time. ? Do not swim or use hot tubs for 2 weeks. ? For comfort, you may use warm compresses or ice as needed for 15-20 minutes at a time. Lifting ? You may lift up to 20 pounds for the first 2 weeks. No strenuous activity for 4 weeks from surgery. Dressings/Incision ? You may NOT shower until EDGAR drain is removed ? Leave plastic dressings on for 2 days. ? When plastic dressings are removed, you will find steri strips. It is okay to continue showering with them in place, pat them dry. ? You may remove steri-strips after 1 week. We recommend getting them soaking wet for easier removal. Medications ? Anesthesia used during surgery and pain medications may cause constipation. I recommend initiating on the day of surgery a fiber supplement like, Metamucil, Citrucel, FiberCon, Benefiber, or a generic form of these medications. 1 heaping tablespoon in water daily. You may continue to utilize any bowel regimen or oral laxatives that you routinely take. ? As long as you are not intolerant to Tylenol, acetaminophen, ibuprofen, Motrin, Advil, Aleve, or similar medications, I would recommend transitioning to these [id number] medicines as soon as possible instead of continued use of narcotic pain medication. Follow up ? You should call [facility] soon after surgery, at [phone] option 2 to make a follow up appointment for 2 weeks after your surgery. You are scheduled for an appointment on 08/18 at 2:15 pm to have your drain removed. Discharge Orders/Prescriptions Prescriptions: New acetaminophen 325 mg Tablet 650 mg PO Q6H PRN PRN (Reason: Pain Score 1-10) Qty: 0 0RF oxycodone 5 mg Tablet 5 mg PO Q6H PRN (Reason: pain) 2 Days Qty: 6 0RF amoxicillin-pot clavulanate 875-125 mg Tablet 1 tab PO BIDCM 4 Days Qty: 8 0RF Continued gabapentin 300 mg capsule 300 mg PO TID PRN (Reason: NERVE PAIN) Patient Comments: PT DOESNT ALWAYS TAKE 3 TIMES A DAY fluoxetine 20 mg capsule 20 mg PO DAILY hyoscyamine sulfate 0.125 mg tablet 0.125 mg PO Q8H PRN (Reason: STOMACH CRAMPS) omeprazole 20 mg capsule,delayed release(DR/EC) 20 mg PO DAILY Probacap 10 billion cell capsule 10,000 mmu cells PO DAILY psyllium husk [Daily Fiber] 0.4 gram capsule 0.4 g PO DAILY turmeric 400 mg capsule 400 mg PO DAILY glucosamine-chondroitin 900 mg tablet 900 mg PO DAILY magnesium oxide 420 mg tablet 420 mg PO DAILY Referrals / Follow Up: Care Physician,No Primary [Primary Care Provider] - [facility] Doctor,Out of [Non-Staff] - Tanya Campoverde PA-C [Med Staff - [facility]] - 08/18/24 2:15 pm Disposition Disposition (needs filled in before D/C Order can be placed): Home, Self Care Charges/Coding Visit Charges Inpatient E&M: 78812 Disch Hosp (post-op)
[2024-08-16 12:05] VITALS: BMI 30.6
--- NOTE | 2024-08-16 12:05 | CASEMGMT ---
ADEOLA CM into pt room, pt sitting up in bed. Pt states she is indep at home. She does have a PCP but it is in [place] ,which is where she currently lives, through [facility]. Pt states that she is moving to [place] in 2 wks. Provided pt with a local healthcare provider list at this time. Pt states she will review and is able to set up her own PCP. Pt states she has cared for EDGAR drains in the past when her dtr had them. Pt denies any concerns with the care of this. She denies any homegoing needs.
[2024-08-16 13:13] VITALS: BP 123/60; PULSE 67; RESP 16; TEMP 36.6; O2SAT 98
--- NOTE | 2024-08-16 13:54 | PHA.DC.MR.R ---
Pharmacy CT Med Reconciliation Pharmacy Service has performed discharge medication reconciliation for this patient. Medication education papers prepared, patient discharged before counseling was attempted. Medications reviewed. The patient's discharge medication list was reviewed for discrepancies and discrepancies were resolved. Medications at Discharge Home Medications Lactobacillus acidophilus 10 billion cell capsule (Probacap) 10,000 mmu cells PO DAILY 08/14/24 antiarthritic combination no.2 900 mg tablet (glucosamine-chondroitin) 900 mg PO DAILY 08/14/24 fluoxetine 20 mg capsule 20 mg PO DAILY 08/14/24 gabapentin 300 mg capsule 300 mg PO TID PRN NERVE PAIN 08/14/24 hyoscyamine sulfate 0.125 mg tablet 0.125 mg PO Q8H PRN STOMACH CRAMPS 08/14/24 magnesium oxide 420 mg tablet 420 mg PO DAILY 08/14/24 omeprazole 20 mg capsule,delayed release 20 mg PO DAILY 08/14/24 psyllium husk 0.4 gram capsule (Daily Fiber) 0.4 g PO DAILY 08/14/24 turmeric 400 mg capsule 400 mg PO DAILY 08/14/24 acetaminophen 325 mg tablet 650 mg (2 x 325 mg) PO Q6H PRN PRN Pain Score 1-10 #0 tabs 08/16/24 amoxicillin 875 mg-potassium clavulanate 125 mg tablet 1 tab PO BIDCM 4 days #8 tabs 08/16/24 oxycodone 5 mg tablet 5 mg PO Q6H PRN pain 2 days #6 tabs 08/16/24
== END 2024-08-16 13:31 | disposition home or self-care (01) ==
LOC: ED 11:14 → MS3 11:24
PROVIDERS: Admitting Provider Surgery; Emergency Provider Emergency Medicine; Visit Provider Surgery
PROC: (CPT 47610; principal; 2024-08-15 08:00)
DX: K80.12 Calculus of gallbladder with acute and chronic cholecystitis without obstruction (principal)
CPT/HCPCS: 47562; 00790; 36415; 76705; 80048; 80053; 80076; 83690; 85025; 88304; 93005; 94668; 96361; 96365; 96366; 96375; 96376; 99221; 99284; A4216; G0378; J2405